=== PATIENT | female | born 1965 | race Caucasian/White ===

== ENCOUNTER 2019-11-28 08:38 | Day surgery (SDC) | payer OTHER ==
[2019-11-27 15:39] VITALS: BMI 31.6
[2019-11-28] MEDS ORDERED: LIDOCAINE 1%-EPI 1:100,000 30 ML MDV IJ ONE (11:13)
[2019-11-28] MEDS ORDERED: SCOPOLAMINE HYDROBROMIDE 1 PATCH PATCH.TD72 ONE (12:05)
[2019-11-28] MEDS ORDERED: PROPOFOL 20 ML ONE ×2 (12:13)
[2019-11-28] MEDS ORDERED: LIDOCAINE HCL/PF 2% SDV 5ML VIAL ONE (12:13)
[2019-11-28] MEDS ORDERED: MIDAZOLAM HCL 2 MG/2 ML SINGLE DOSE VIAL ONE ×2 (12:18)
[2019-11-28] MEDS ORDERED: LIDO 2%/EPI 1:200000 PRESRVFRE (20 ML SDVIAL) INF ONE (12:27)
[2019-11-28] MEDS ORDERED: oxyCODONE HCL 5 MG TABLET PO PRN (12:59)
[2019-11-28] MEDS ORDERED: ONDANSETRON 4 MG/2 ML VIAL IVPUSH PRN (12:59)
[2019-11-28] MEDS ORDERED: PROMETHAZINE HCL 25 MG/1 ML VIAL IVPUSH PRN (12:59)
--- NOTE | 2019-11-28 13:10 | OP ---
Operative Note - Note: Operative Date: 11/28/19 Pre-Operative Diagnosis: exposed left breast implant Operation: Removal of implant left chest wall Surgeon: Sina Rios Anesthesia: MAC Specimens Removed: capsule and implant Operative Report Dictated: Yes
[2019-11-28 14:50] VITALS: TEMP 97.5
[2019-11-28 15:15] VITALS: BP 127/67; PULSE 93
--- NOTE | 2019-11-28 17:04 | OP ---
DATE OF OPERATION: 11/28/2019 SURGEON: Sina Rios MD PREOPERATIVE DIAGNOSIS: Exposed left breast implant device, status post mastectomy, left breast. POSTOPERATIVE DIAGNOSIS: Exposed left breast implant device, status post mastectomy, left breast. OPERATIVE PROCEDURE: 1. Capsulotomy of left breast. 2. Capsulectomy of left breast 3. Removal tissue retail assistant device, left breast for infection and exposure. OPERATIVE INDICATIONS: The patient is a woman who was brought to the operating room approximately 4 to 5 weeks ago for left breast mastectomy who underwent immediate breast reconstruction and has had complications related to infection of the left breast as well as necrotic skin of the left breast. The patient was brought back previously for washout and reclosure of her implant device but now presents with recurrent infection and complete exposure of the device itself. The risks and benefits of surgical versus nonsurgical alternatives as well as material complications were described to the patient on multiple occasions preoperatively including today again before the procedure was begun. The patient desired simple removal of her implant washout and closure to get back to her work and life. All questions were asked and answered. She agrees to the planned procedure. OPERATIVE PROCEDURE IN DETAIL: Patient was taken to the operating room on an urgent basis where she was brought to the operating room and placed supine on the operating room table. On examination of the chest wall during induction of anesthesia, a large opening measuring 6 x 6 cm in greatest dimension was seen along the lateral portion of the chest wall with a closure of the implant device itself. After induction of sedation anesthesia by the Anesthesia Department, the entire chest wall was painted with Betadine solution over its entire extent and then after prepping and draping in the usual fashion an incision was made down through the mastectomy scar down through the underlying exposed device where the implant was seen to be within the pocket. The implant device was then removed along with its overlying capsule and sent for pathologic diagnosis. The wounds were copiously irrigated with a triple antibiotic solution and no sharla pus was noted within the wound itself. After irrigation of the pocket itself, advancement flaps were created superiorly and inferiorly and the wound was closed by advancement of the skin and subcutaneous tissue in a complex fashion. Using a 3-0 PDS suture in the deep fascia, the skin was approximated according to the mastectomy scar and then multiple layers of suture using 3-0 PDS and 5-0 plain catgut sutures in the skin for absorbable material. Once the wound was closed, Dermabond and Steri-Strip dressings were applied. The patient was awakened and transferred to the recovery room in satisfactory condition. She tolerated the procedure well. SHAGUFTA RIOS M.D. JOSE [id number]
--- NOTE | 2019-11-29 16:14 | PATH ---
Surgical Pathology Report Patient Name: ALFONSO SHAY Med. Rec. #: [id number] /Age/Gender: 1965 (Age: 54) / F Account: [id number] Location: [facility] Taken: 11/28/2019 Received: 11/28/2019 Reported: 11/29/2019 Physicians: Sina Rios Specimen(s) Received A: LEFT BREAST B: LEFT BREAST IMPLANT DEVICE Clinical History Mastectomy 5 weeks ago, infection of implant left breast Final Diagnosis A. LEFT BREAST TISSUE, EXCISION: PORTIONS OF SKIN AND SUBCUTANEOUS TISSUE SHOWING ACUTE AND CHRONIC INFLAMMATION, FAT NECROSIS AND ASSOCIATED REACTIVE CHANGE. B. LEFT BREAST IMPLANT DEVICE, REMOVAL: CONSISTENT WITH A BREAST IMPLANT. GROSS EXAMINATION ONLY. Electronically Signed Shyla Kelsey M.D. Gross Description A. Received in formalin labeled "left breast tissue," are 3 curtis, irregular, unoriented portions of skin ranging from 1.5 x 0.9 x 0.4 cm to 4.5 x 0.4 x 0.7 cm. The smallest portion contains clear suture material. Separately received within the same container is a 2.1 x 1.8 x 0.1 cm curtis portion of mesh material. Coagulating Operator sections of the skin are submitted in one cassette. B. Received fresh labeled "left breast implant device," is a 13.5 x 12.5 x 2.5 cm clear, intact, fluid-filled foreign body, consistent with a breast implant. No soft tissue is present. No sections are submitted, gross only. /11/28/2019 saudi/11/28/2019
== END 2019-11-28 15:00 | disposition home or self-care (01) ==
LOC: JASU-SURG 08:38
PROVIDERS: ATTEND Plastic Surgery
PROC: 0HNU0ZZ Release Left Breast, Open Approach (ICD-10-PCS; 2019-11-28)
PROC: 0HPU0JZ Removal of Synthetic Substitute from Left Breast, Open Approach (ICD-10-PCS; principal; 2019-11-28 10:30)
DX: T85.79XA Infection and inflammatory reaction due to other internal prosthetic devices, implants and grafts, initial encounter (principal); T85.898A Other specified complication of other internal prosthetic devices, implants and grafts, initial encounter; Y83.8 Other surgical procedures as the cause of abnormal reaction of the patient, or of later complication, without mention of misadventure at the time of the procedure; Y92.89 Other specified places as the place of occurrence of the external cause; Z90.12 Acquired absence of left breast and nipple
CPT/HCPCS: 88300-TC; 88305-TC; 94760